=== PATIENT | male | born 1965 | race Hispanic/Latino ===

== ENCOUNTER 2022-01-31 12:50 | Outpatient (CLI) | payer MEDICARE | END 2022-01-31 12:51 | disposition home or self-care (01) | LOC: CSHWCC 12:50 | PROVIDERS: ATTEND Nurse Practitioner Family | DX: L89.893 Pressure ulcer of other site, stage 3 (principal) | CPT/HCPCS: 11042; 97139; G0463; 99212 ==

== ENCOUNTER 2022-03-28 13:03 | Outpatient (CLI) | payer MEDICARE | END 2022-03-28 13:04 | disposition home or self-care (01) | LOC: CSHWCC 13:03 | PROVIDERS: ATTEND Nurse Practitioner Family | DX: L89.893 Pressure ulcer of other site, stage 3 (principal) | CPT/HCPCS: 97139; G0463; 99213 ==

== ENCOUNTER 2022-04-18 12:51 | Outpatient (CLI) | payer MEDICARE | END 2022-04-18 12:52 | disposition home or self-care (01) | LOC: CSHWCC 12:51 | PROVIDERS: ATTEND Nurse Practitioner Family | DX: L89.893 Pressure ulcer of other site, stage 3 (principal) | CPT/HCPCS: 97607 ==

== ENCOUNTER 2022-04-25 14:07 | Outpatient (CLI) | payer MEDICARE | END 2022-04-25 14:08 | disposition home or self-care (01) | LOC: CSHWCC 14:07 | PROVIDERS: ATTEND Nurse Practitioner Family | DX: L89.893 Pressure ulcer of other site, stage 3 (principal) | CPT/HCPCS: 11042; 97607; 99212; G0463 ==

== ENCOUNTER 2022-05-02 13:54 | Outpatient (CLI) | payer MEDICARE | END 2022-05-02 13:55 | disposition home or self-care (01) | LOC: CSHWCC 13:54 | PROVIDERS: ATTEND Nurse Practitioner Family | DX: L89.893 Pressure ulcer of other site, stage 3 (principal); L89.892 Pressure ulcer of other site, stage 2 | CPT/HCPCS: 11042; 97139; 97607; G0463; 99212 ==

== ENCOUNTER 2022-05-09 12:59 | Outpatient (CLI) | payer MEDICARE | END 2022-05-09 13:00 | disposition home or self-care (01) | LOC: CSHWCC 12:59 | PROVIDERS: ATTEND Nurse Practitioner Family | DX: L89.893 Pressure ulcer of other site, stage 3 (principal); L89.892 Pressure ulcer of other site, stage 2 | CPT/HCPCS: 97139; 97607; G0463; 99213 ==

== ENCOUNTER 2022-06-06 11:29 | Outpatient (CLI) | payer MEDICARE | END 2022-06-06 11:30 | disposition home or self-care (01) | LOC: CSHWCC 11:29 | PROVIDERS: ATTEND Nurse Practitioner Family | DX: L89.893 Pressure ulcer of other site, stage 3 (principal); L89.892 Pressure ulcer of other site, stage 2 ==

== ENCOUNTER 2022-06-27 09:47 | Outpatient (CLI) | payer MEDICARE | END 2022-06-27 09:48 | disposition home or self-care (01) | LOC: CSHWCC 09:47 | PROVIDERS: ATTEND Nurse Practitioner Family | DX: L89.893 Pressure ulcer of other site, stage 3 (principal); L89.892 Pressure ulcer of other site, stage 2 ==

== ENCOUNTER 2022-09-05 10:27 | Outpatient (CLI) | payer MEDICARE | END 2022-09-05 10:28 | disposition home or self-care (01) | LOC: CSHWCC 10:27 | PROVIDERS: ATTEND Preventive Medicine Undersea and Hyperbaric Medicine | DX: L89.892 Pressure ulcer of other site, stage 2 (principal); L89.893 Pressure ulcer of other site, stage 3 | CPT/HCPCS: 97139; G0463; 99213 ==

== ENCOUNTER 2023-12-30 15:33 | Inpatient (IN) | payer MEDICARE, OTHER ==
[~2023-12-30 15:33] MED LIST: Iopamidol 300 61% 100 ML VIAL FS ONE
[2023-12-30] MEDS ORDERED: Cefepime 2 GM VIAL ONE (16:11)
[2023-12-30 16:14] LABS: #Basophils 0.1 10x3/uL (0.0-0.2); #Monocytes 1.4 10x3/uL (0.0-1.1); #Neutrophils 14.6 10x3/uL (1.5-8.4); %Basophils 0.3 % (0.0-2.0); %Eosinophils 0.2 % (0.0-6.0); %Lymphocytes 7.6 % (18.0-47.0); %Monocytes 7.8 % (0.0-10.0); %Neutrophils 79.9 % (40.0-75.0); Hemoglobin 9.3 g/dL (13.5-17.5); Mean Corpuscular HGB CONC 33.2 g/dL (32.0-36.0); Mean Corpuscular Hemoglobin 28.9 pg (27.0-33.0); Platelet Count 463 10x3/uL (150-450); RBC Distribution Width 13.9 % (11.5-14.5); Red Blood Cell (RBC) Count 3.22 10x6/uL (4.32-5.72); White Blood Cell (WBC) Count 18.3 10x3/uL (3.5-10.5)
[2023-12-30 16:36] LABS: Troponin I Less than 0.010 ng/mL (< 0.028)
[2023-12-30 16:46] LABS: INR-International Normal Ratio 1.1; PTT 24.5 sec (22.0-33.0); Prothrombin Time 11.9 sec (9.5-12.1)
[2023-12-30 16:51] LABS: ALT (SGPT) 17 U/L (8-55); AST (SGOT) 23 U/L (5-34); Albumin 3.1 g/dL (3.5-5.0); Alkaline Phosphatase 66 U/L (40-110); Anion Gap 17 mmol/L (10-20); BUN (Urea Nitrogen) 35 mg/dL (8.4-25.7); Bilirubin, Total 0.2 mg/dL (0.2-1.2); Calc. Creatinine Clearance 0 mL/min (70-130); Calcium 8.9 mg/dL (7.8-10.44); Carbon Dioxide 19 mmol/L (22-29); Chloride 102 mmol/L (98-107); Estimated GFR 34; Globulin 4.1 g/dL (2.4-3.5); Glucose 205 mg/dL (70-105); Lipase 94 U/L (8-78); Potassium 4.5 mmol/L (3.5-5.1); Protein, Total 7.2 g/dL (6.0-8.3); Sodium 133 mmol/L (136-145)
[2023-12-30] MEDS ORDERED: Vancomycin 1 GM VIAL ONE (16:52)
[2023-12-30 17:24] LABS: SARS-CoV-2 NAA Rapid Test Not Detected (NotDetected)
[2023-12-30] MEDS ORDERED: NOREPINEPHRINE 8 MG/250 ML-D5W 250 ML ONE (17:40)
[2023-12-30] MEDS ORDERED: Dextrose 50% Abboject 50 ML SYRINGE SLOW IVP PRN (17:52)
[2023-12-30] MEDS ORDERED: Dextrose 5% in Water 1,000 ML IV PRN (17:52)
[2023-12-30] MEDS ORDERED: Acetaminophen 325 MG TAB PO PRN (17:52)
[2023-12-30] MEDS ORDERED: Glucagon 1 MG/ML KIT IM PRN (17:52)
[2023-12-30 19:09] LABS: Lactic Acid 0.9 mmol/L (0.5-2.2)
[2023-12-30 20:41] VITALS: BMI 44.1
[2023-12-30] MEDS ORDERED: Vancomycin Dose by Levels Sliding Scale (Wt <71) FS SCH (21:00)
[2023-12-30] MEDS ORDERED: Vancomycin 1 GM in Premix 1 BAG IVPB SCH (21:00)
[2023-12-30] MEDS: Lantus 1000 UNITS/10 ML VIAL SC SCH (21:44)
[2023-12-30] MEDS: Lactated Ringer's 1,000 ML IV SCH (21:48)
[2023-12-30] MEDS: Vancomycin HCl 500 MG in Sodium Chloride 0.9% 100 ML IVPB SCH (21:48)
[2023-12-30] MEDS: Insulin Regular 300 UNITS/3 ML VIAL ONE (21:52)
[2023-12-31] MEDS: Ondansetron PF 4 MG/2 ML Vial IVP PRN (01:42)
[2023-12-31 04:08] LABS: Hematocrit 32.1 % (38.8-50.0); Hemoglobin 10.6 g/dL (13.5-17.5); Mean Corpuscular Hemoglobin 29.1 pg (27.0-33.0); Mean Corpuscular Volume 88.2 fl (81.2-95.1); Mean Platelet Volume 9.9 fl (7.4-10.4); Platelet Count 407 10x3/uL (150-450); RBC Distribution Width 14.2 % (11.5-14.5); Red Blood Cell (RBC) Count 3.64 10x6/uL (4.32-5.72)
[2023-12-31 04:14] LABS: Anion Gap 17 mmol/L (10-20); BUN (Urea Nitrogen) 26 mg/dL (8.4-25.7); Calc. Creatinine Clearance 47 mL/min (70-130); Calcium 8.3 mg/dL (7.8-10.44); Carbon Dioxide 15 mmol/L (22-29); Chloride 108 mmol/L (98-107); Estimated GFR 56; Glucose 214 mg/dL (70-105); Potassium 4.1 mmol/L (3.5-5.1); Sodium 136 mmol/L (136-145)
[2023-12-31 04:16] LABS: MDiff Complete? YES
[2023-12-31 04:53] LABS: Bilirubin Neg (Negative); Blood, Urine Negative (Negative); Glucose, Urine (Dipstick) >=1000 mg/dL (Negative); Ketone, Urine 50 mg/dL (Negative); Leukocyte Negative (Negative); Nitrite Negative (Negative); Protein, Urine (Dipstick) Negative (Neg-Trace); Specific Gravity, Urine 1.015 (1.005-1.030); Urobilinogen Normal mg/dL (Less than 2)
[2023-12-31 04:53] LABS: Vancomycin, Random 15.1 ug/mL (See Comment)
[2023-12-31 05:11] LABS: Clarity Slightly Cloudy (Clear)
[2023-12-31 05:12] LABS: Bacteria/HPF Rare-Few HPF (None Seen); RBC/HPF 0-3 HPF (0-3); Squamous Epithelial 0-3 HPF (0-3); Yeast-Budding Rare HPF (None Seen)
[2023-12-31 05:36] LABS: Band 2 % (5-11); Lymphocytes 8 % (21-51); Metamyelocyte 1 % (0-0); Monocytes 8 % (0-10); Neutrophil 81 % (42-75)
[2023-12-31 05:37] LABS: Platelet Adequacy Comment Appears Adequate; RBC Morph Comment Within Normal Limits
[2023-12-31] MEDS: HumaLOG 300 UNITS/3 ML VIAL SC PRN ×2 (05:54→21:30)
[2023-12-31] MEDS: Enoxaparin 30 MG (0.3 mL) SYRINGE SC SCH (08:37)
[2023-12-31] MEDS: Pantoprazole 40 MG VIAL IVP SCH (12:07)
[2023-12-31] MEDS: Cefepime 1 GM in Sodium Chloride 0.9% 100 ML IVPB SCH (15:05)
[2023-12-31 17:21] LABS: Campy jejuni + coli by PCR Negative (Negative); STEC Shiga Toxin 1+2 Negative (Negative); Salmonella spp. by PCR Negative (Negative); Shigella spp + EIEC by PCR Negative (Negative)
[2023-12-31 17:23] LABS: Vancomycin, Random 7.7 ug/mL (See Comment)
[2023-12-31] MEDS: Ondansetron ODT 4 MG TAB PO PRN (21:27)
[2023-12-31] MEDS: Vancomycin 1 GM in Sodium Chloride 0.9% 250 ML 250 ML IVPB SCH (21:27)
[2023-12-31] MEDS: HYDROcodone/Acetaminophen 5/325 mg Tablet PO PRN (21:28)
[2024-01-01] MEDS: Cefepime 2 GM in Sodium Chloride 0.9% 100 ML IVPB SCH (03:58)
[2024-01-01 07:48] LABS: Hematocrit 29.8 % (38.8-50.0); Hemoglobin 9.9 g/dL (13.5-17.5); MDiff Complete? YES; Mean Corpuscular HGB CONC 33.2 g/dL (32.0-36.0); Mean Corpuscular Volume 87.4 fl (81.2-95.1); Mean Platelet Volume 9.5 fl (7.4-10.4); Platelet Count 322 10x3/uL (150-450); RBC Distribution Width 14.2 % (11.5-14.5); Red Blood Cell (RBC) Count 3.41 10x6/uL (4.32-5.72); White Blood Cell (WBC) Count 6.8 10x3/uL (3.5-10.5)
[2024-01-01 07:59] LABS: Anion Gap 13 mmol/L (10-20); BUN (Urea Nitrogen) 10 mg/dL (8.4-25.7); Calc. Creatinine Clearance 89 mL/min (70-130); Calcium 8.2 mg/dL (7.8-10.44); Carbon Dioxide 21 mmol/L (22-29); Chloride 106 mmol/L (98-107); Estimated GFR 103; Glucose 112 mg/dL (70-105); Potassium 3.7 mmol/L (3.5-5.1); Sodium 136 mmol/L (136-145)
[2024-01-01] MEDS: Enoxaparin 40 MG (0.4 mL) SYRINGE SC SCH (08:11)
[2024-01-01 08:16] LABS: Eosinophils 2 % (0-10); Lymphocytes 15 % (21-51); Metamyelocyte 1 % (0-0); Monocytes 11 % (0-10); Myelocyte 1 % (0-0); Neutrophil 65 % (42-75); Reactive Lymphocytes 5 % (0-10)
[2024-01-01 08:17] LABS: Platelet Adequacy Comment Appears Adequate; RBC Morph Comment Within Normal Limits
[2024-01-01] MEDS ORDERED: Iopamidol 300 61% 100 ML VIAL FS ONE (09:08)
[2024-01-01 20:14] LABS: Vancomycin, Random 5.6 ug/mL (See Comment)
[2024-01-01] MEDS: Vancomycin HCl 750 MG in Sodium Chloride 0.9% 250 ML 250 ML IVPB SCH (22:23)
[2024-01-02 03:55] LABS: #Basophils 0.1 10x3/uL (0.0-0.2); #Eosinphils 0.1 10x3/uL (0.0-0.5); #Monocytes 0.7 10x3/uL (0.0-1.1); #Neutrophils 4.4 10x3/uL (1.5-8.4); %Basophils 0.7 % (0.0-2.0); %Eosinophils 1.7 % (0.0-6.0); %Lymphocytes 21.5 % (18.0-47.0); %Monocytes 10.2 % (0.0-10.0); %Neutrophils 61.8 % (40.0-75.0); Anion Gap 13 mmol/L (10-20); BUN (Urea Nitrogen) 10 mg/dL (8.4-25.7); Calc. Creatinine Clearance 94 mL/min (70-130); Calcium 7.9 mg/dL (7.8-10.44); Carbon Dioxide 23 mmol/L (22-29); Chloride 104 mmol/L (98-107); Estimated GFR 105; Glucose 172 mg/dL (70-105); Hematocrit 29.2 % (38.8-50.0); Hemoglobin 9.9 g/dL (13.5-17.5); Mean Corpuscular HGB CONC 33.9 g/dL (32.0-36.0); Mean Corpuscular Hemoglobin 28.9 pg (27.0-33.0); Mean Corpuscular Volume 85.1 fl (81.2-95.1); Mean Platelet Volume 9.5 fl (7.4-10.4); Platelet Count 319 10x3/uL (150-450); Potassium 3.7 mmol/L (3.5-5.1); RBC Distribution Width 13.7 % (11.5-14.5); Red Blood Cell (RBC) Count 3.43 10x6/uL (4.32-5.72); Sodium 136 mmol/L (136-145); White Blood Cell (WBC) Count 7.1 10x3/uL (3.5-10.5)
[2024-01-02] MEDS ORDERED: Ondansetron PF 4 MG/2 ML Vial ONE (09:54)
[2024-01-02] MEDS ORDERED: PROPOFOL 20 ML ONE (09:54)
[2024-01-02] MEDS ORDERED: Lidocaine 2% PF 5 ML VIAL ONE (09:54)
[2024-01-02] MEDS ORDERED: Fentanyl 250 MCG/5 ML VIAL ONE (09:54)
[2024-01-02] MEDS ORDERED: Acetaminophen 325 MG TAB PO PRN (16:37)
[2024-01-02] MEDS: Morphine 4 MG/ML VIAL SLOW IVP PRN (17:43)
[2024-01-03 08:56] LABS: Vancomycin, Trough 13.6 ug/mL
[2024-01-03] MEDS: Morphine 2 MG/ML VIAL SLOW IVP PRN (23:57)
[2024-01-04] MEDS: Sodium Chloride 0.9% 1,000 ML IV SCH (10:42)
[2024-01-04 11:04] LABS: Actual Bicarbonate (HCO3v) 22.9 mEq/L (22-28); Analyzer IN Cardio CS ER; Base Excess 0.3 mEq/L (-2 - +2); Calcium, Ionized (venous) 0.95 mmol/L (1.16-1.32); Chloride (VBG) 102 mmol/L (98-106); Critical Notified Whom: Cocjef; Hematocrit-VBG 34 % (42.0-52.0); Hemoglobin (Hb) 11.6 g/dL (13.1-17.2); Puncture Site Other Site; RapidComm Collect By LAB; Sodium 131 mmol/L (133-146); pH (venous) 7.494 (7.32-7.43)
[2024-01-04 11:26] LABS: PTT 29.6 sec (22.0-33.0); Prothrombin Time 10.9 sec (9.5-12.1)
[2024-01-04 11:27] LABS: #Basophils 0.1 10x3/uL (0.0-0.2); #Eosinphils 0.1 10x3/uL (0.0-0.5); #Monocytes 1.1 10x3/uL (0.0-1.1); #Neutrophils 5.5 10x3/uL (1.5-8.4); %Basophils 0.7 % (0.0-2.0); %Eosinophils 1.1 % (0.0-6.0); %Lymphocytes 17.9 % (18.0-47.0); %Monocytes 12.5 % (0.0-10.0); Hematocrit 28.4 % (38.8-50.0); Hemoglobin 9.2 g/dL (13.5-17.5); Mean Corpuscular HGB CONC 32.4 g/dL (32.0-36.0); Mean Corpuscular Hemoglobin 28.9 pg (27.0-33.0); Mean Corpuscular Volume 89.3 fl (81.2-95.1); Mean Platelet Volume 9.5 fl (7.4-10.4); Platelet Count 305 10x3/uL (150-450); RBC Distribution Width 13.8 % (11.5-14.5); Red Blood Cell (RBC) Count 3.18 10x6/uL (4.32-5.72); White Blood Cell (WBC) Count 8.4 10x3/uL (3.5-10.5)
[2024-01-04 11:32] LABS: ALT (SGPT) 16 U/L (8-55); AST (SGOT) 28 U/L (5-34); Albumin 2.5 g/dL (3.5-5.0); Alkaline Phosphatase 51 U/L (40-110); Anion Gap 13 mmol/L (10-20); BUN (Urea Nitrogen) 17 mg/dL (8.4-25.7); Bilirubin, Total Less than 0.2 mg/dL (0.2-1.2); Calc. Creatinine Clearance 75 mL/min (70-130); Calcium 7.9 mg/dL (7.8-10.44); Carbon Dioxide 22 mmol/L (22-29); Chloride 102 mmol/L (98-107); Estimated GFR 98; Globulin 3.5 g/dL (2.4-3.5); Glucose 129 mg/dL (70-105); Magnesium 1.5 mg/dL (1.6-2.6); Potassium 4.3 mmol/L (3.5-5.1); Sodium 133 mmol/L (136-145)
[2024-01-04 14:22] LABS: Lactic Acid 1.4 mmol/L (0.5-2.2)
[2024-01-04] MEDS: cefTRIAXone\\ROCEPHIN 1 GM in Sodium Chloride 0.9% 100 ML IVPB SCH (15:38)
[2024-01-04] MEDS ORDERED: Electrolyte Replacement Protocol 1 EACH FS SCH (15:45)
[2024-01-04] MEDS: Magnesium 2 GM/50 ML(in water) 2 GM in Premix 1 BAG IVPB SCH (16:51)
[2024-01-04] MEDS: Atorvastatin Calcium 40 MG TAB PO SCH (20:26)
[2024-01-05 05:43] LABS: #Eosinphils 0.2 10x3/uL (0.0-0.5); #Neutrophils 4.7 10x3/uL (1.5-8.4); %Basophils 0.4 % (0.0-2.0); %Eosinophils 2.2 % (0.0-6.0); %Lymphocytes 21.3 % (18.0-47.0); %Monocytes 12.5 % (0.0-10.0); %Neutrophils 60.8 % (40.0-75.0); Hematocrit 27.9 % (38.8-50.0); Hemoglobin 9.4 g/dL (13.5-17.5); Mean Corpuscular HGB CONC 33.7 g/dL (32.0-36.0); Mean Corpuscular Hemoglobin 29.3 pg (27.0-33.0); Mean Corpuscular Volume 86.9 fl (81.2-95.1); Mean Platelet Volume 9.6 fl (7.4-10.4); Platelet Count 299 10x3/uL (150-450); RBC Distribution Width 13.6 % (11.5-14.5); Red Blood Cell (RBC) Count 3.21 10x6/uL (4.32-5.72); White Blood Cell (WBC) Count 7.7 10x3/uL (3.5-10.5)
[2024-01-05 06:01] LABS: Anion Gap 11 mmol/L (10-20); BUN (Urea Nitrogen) 16 mg/dL (8.4-25.7); Calc. Creatinine Clearance 77 mL/min (70-130); Calcium 7.8 mg/dL (7.8-10.44); Carbon Dioxide 25 mmol/L (22-29); Chloride 102 mmol/L (98-107); Estimated GFR 99; Glucose 199 mg/dL (70-105); Magnesium 1.8 mg/dL (1.6-2.6); Potassium 4.2 mmol/L (3.5-5.1); Sodium 134 mmol/L (136-145)
[2024-01-05] MEDS: Magnesium 2 GM/50 ML(in water) 2 GM in Premix 1 BAG IVPB SCH (09:26)
[2024-01-05] MEDS: Magnesium 2 GM/50 ML BAG (IN WATER) ONE (10:01)
[2024-01-06 05:10] LABS: #Basophils 0.1 10x3/uL (0.0-0.2); #Eosinphils 0.1 10x3/uL (0.0-0.5); #Monocytes 0.7 10x3/uL (0.0-1.1); #Neutrophils 4.5 10x3/uL (1.5-8.4); %Basophils 0.7 % (0.0-2.0); %Eosinophils 1.3 % (0.0-6.0); %Lymphocytes 19.9 % (18.0-47.0); %Monocytes 10.1 % (0.0-10.0); %Neutrophils 66.7 % (40.0-75.0); Hematocrit 30.2 % (38.8-50.0); Hemoglobin 9.9 g/dL (13.5-17.5); Mean Corpuscular HGB CONC 32.8 g/dL (32.0-36.0); Mean Corpuscular Hemoglobin 28.7 pg (27.0-33.0); Mean Corpuscular Volume 87.5 fl (81.2-95.1); Mean Platelet Volume 9.3 fl (7.4-10.4); Platelet Count 343 10x3/uL (150-450); RBC Distribution Width 13.5 % (11.5-14.5); Red Blood Cell (RBC) Count 3.45 10x6/uL (4.32-5.72); White Blood Cell (WBC) Count 6.7 10x3/uL (3.5-10.5)
[2024-01-06 05:12] LABS: Anion Gap 11 mmol/L (10-20); BUN (Urea Nitrogen) 16 mg/dL (8.4-25.7); Calc. Creatinine Clearance 78 mL/min (70-130); Calcium 8.1 mg/dL (7.8-10.44); Carbon Dioxide 26 mmol/L (22-29); Chloride 101 mmol/L (98-107); Estimated GFR 99; Glucose 188 mg/dL (70-105); Magnesium 2.1 mg/dL (1.6-2.6); Potassium 4.5 mmol/L (3.5-5.1); Sodium 133 mmol/L (136-145)
[2024-01-07 04:25] LABS: #Basophils 0.1 10x3/uL (0.0-0.2); #Eosinphils 0.1 10x3/uL (0.0-0.5); #Monocytes 0.9 10x3/uL (0.0-1.1); #Neutrophils 5.9 10x3/uL (1.5-8.4); %Basophils 0.6 % (0.0-2.0); %Eosinophils 1.3 % (0.0-6.0); %Lymphocytes 19.2 % (18.0-47.0); %Monocytes 10.7 % (0.0-10.0); %Neutrophils 67.4 % (40.0-75.0); Hematocrit 29.3 % (38.8-50.0); Hemoglobin 9.6 g/dL (13.5-17.5); Mean Corpuscular HGB CONC 32.8 g/dL (32.0-36.0); Mean Corpuscular Hemoglobin 28.3 pg (27.0-33.0); Mean Corpuscular Volume 86.4 fl (81.2-95.1); Platelet Count 401 10x3/uL (150-450); RBC Distribution Width 13.4 % (11.5-14.5); Red Blood Cell (RBC) Count 3.39 10x6/uL (4.32-5.72); White Blood Cell (WBC) Count 8.8 10x3/uL (3.5-10.5)
[2024-01-07 04:39] LABS: Anion Gap 12 mmol/L (10-20); BUN (Urea Nitrogen) 17 mg/dL (8.4-25.7); Calc. Creatinine Clearance 64 mL/min (70-130); Calcium 8.2 mg/dL (7.8-10.44); Carbon Dioxide 25 mmol/L (22-29); Chloride 101 mmol/L (98-107); Estimated GFR 82; Glucose 216 mg/dL (70-105); Magnesium 1.7 mg/dL (1.6-2.6); Potassium 4.4 mmol/L (3.5-5.1); Sodium 134 mmol/L (136-145)
[2024-01-07] MEDS: Magnesium 2 GM/50 ML(in water) 2 GM in Premix 1 BAG IVPB SCH (09:13)
[2024-01-07] MEDS: Alogliptin 6.25 MG TAB PO SCH (12:45)
[2024-01-07] MEDS: metFORMIN 500 MG TAB PO SCH ×2 (14:39→16:59)
[2024-01-07] MEDS: Polyethylene Glycol 3350 17 GM Packet PO SCH (16:59)
[2024-01-08] MEDS: Polyethylene Glycol 3350 17 GM Packet PO SCH (09:04)
[2024-01-08] MEDS: Alogliptin 6.25 MG TAB PO SCH (09:06)
[2024-01-08] MEDS: oxyCODONE 5 MG TAB PO PRN (14:09)
[2024-01-08 16:13] VITALS: BP 116/65; TEMP 97.9
== END 2024-01-08 16:15 | disposition swing bed (61) | DRG 853 ==
LOC: CSHERS 15:33 → OBSVTOIN 17:02 → CSHIMCU 17:02 → MERGE 17:02 → CSHTELE 01-02 14:26
PROVIDERS: ADMIT Internal Medicine; ATTEND Family Medicine
PROC: 3E03329 Introduction of Other Anti-infective into Peripheral Vein, Percutaneous Approach (ICD-10-PCS; 2023-12-30)
PROC: 3E033XZ Introduction of Vasopressor into Peripheral Vein, Percutaneous Approach (ICD-10-PCS; 2023-12-30)
PROC: 0JBL0ZZ Excision of Right Upper Leg Subcutaneous Tissue and Fascia, Open Approach (ICD-10-PCS; principal; 2024-01-02)
DX: A40.1 Sepsis due to streptococcus, group B (principal); R65.21 Severe sepsis with septic shock; L02.415 Cutaneous abscess of right lower limb; L03.115 Cellulitis of right lower limb; N17.9 Acute kidney failure, unspecified; B37.7 Candidal sepsis; E11.628 Type 2 diabetes mellitus with other skin complications; I10 Essential (primary) hypertension; E78.5 Hyperlipidemia, unspecified; K21.9 Gastro-esophageal reflux disease without esophagitis; E55.9 Vitamin D deficiency, unspecified; I95.9 Hypotension, unspecified; Z89.512 Acquired absence of left leg below knee; Z89.511 Acquired absence of right leg below knee; Z79.899 Other long term (current) drug therapy; Z83.3 Family history of diabetes mellitus; Z11.52 Encounter for screening for COVID-19
CPT/HCPCS: 36415; 36416; 36556; 71045; 74177; 80048; 80053; 80202; 81001; 82805; 83605; 83690; 83735; 84443; 84484; 85025; 85610; 85730; 86850; 86900; 86901; 87040; 87070; 87076; 87077; 87086; 87205; 87324; 87449; 87505; 93005; 93010; 93306; 94760; 96374; 96375; 97139; C1713; C9113; J0692; J0696; J1650; J1815; J2001; J2270; J2272; J2405; J2704; J3010; J3370; J3475; J3490; J7050; J7120; Q0162; Q9967

== ENCOUNTER 2024-01-23 08:09 | Outpatient (CLI) | payer OTHER | END 2024-01-23 08:10 | disposition home or self-care (01) | LOC: CSHWCC 08:09 | PROVIDERS: ATTEND Nurse Practitioner Family | DX: T81.32XD Disruption of internal operation (surgical) wound, not elsewhere classified, subsequent encounter (principal); E11.622 Type 2 diabetes mellitus with other skin ulcer; L97.122 Non-pressure chronic ulcer of left thigh with fat layer exposed; L97.115 Non-pressure chronic ulcer of right thigh with muscle involvement without evidence of necrosis; E11.51 Type 2 diabetes mellitus with diabetic peripheral angiopathy without gangrene; E11.40 Type 2 diabetes mellitus with diabetic neuropathy, unspecified | CPT/HCPCS: 11042; 11043; 11046; 97605; G0463; 99215 ==

== ENCOUNTER 2024-01-27 14:30 | Outpatient (CLI) | payer OTHER | END 2024-01-27 14:31 | disposition home or self-care (01) | LOC: CSHWCC 14:30 | PROVIDERS: ATTEND Nurse Practitioner Family | DX: T81.32XD Disruption of internal operation (surgical) wound, not elsewhere classified, subsequent encounter (principal); E11.622 Type 2 diabetes mellitus with other skin ulcer; L97.122 Non-pressure chronic ulcer of left thigh with fat layer exposed; L97.115 Non-pressure chronic ulcer of right thigh with muscle involvement without evidence of necrosis; E11.51 Type 2 diabetes mellitus with diabetic peripheral angiopathy without gangrene; E11.40 Type 2 diabetes mellitus with diabetic neuropathy, unspecified | CPT/HCPCS: 11042 ==

== ENCOUNTER 2024-02-10 | Outpatient (CLI) | payer OTHER | END 2024-02-10 11:04 | disposition home or self-care (01) | DX: T81.32XA Disruption of internal operation (surgical) wound, not elsewhere classified, initial encounter (principal); E11.622 Type 2 diabetes mellitus with other skin ulcer; E11.40 Type 2 diabetes mellitus with diabetic neuropathy, unspecified; L97.122 Non-pressure chronic ulcer of left thigh with fat layer exposed; L97.115 Non-pressure chronic ulcer of right thigh with muscle involvement without evidence of necrosis; I73.9 Peripheral vascular disease, unspecified ==

== ENCOUNTER 2024-03-02 14:30 | Outpatient (CLI) | payer OTHER | END 2024-03-02 14:31 | LOC: CSHWCC 14:30 | PROVIDERS: ATTEND Nurse Practitioner Family | DX: T81.32XD Disruption of internal operation (surgical) wound, not elsewhere classified, subsequent encounter (principal); E11.622 Type 2 diabetes mellitus with other skin ulcer; L97.122 Non-pressure chronic ulcer of left thigh with fat layer exposed; L97.115 Non-pressure chronic ulcer of right thigh with muscle involvement without evidence of necrosis; E11.51 Type 2 diabetes mellitus with diabetic peripheral angiopathy without gangrene; E11.40 Type 2 diabetes mellitus with diabetic neuropathy, unspecified | CPT/HCPCS: 11042 ==

== ENCOUNTER 2024-04-06 10:00 | Outpatient (CLI) | payer OTHER | END 2024-04-06 10:01 | disposition home or self-care (01) | LOC: CSHWCC 10:00 | PROVIDERS: ATTEND Family Medicine | DX: T81.32XD Disruption of internal operation (surgical) wound, not elsewhere classified, subsequent encounter (principal); E11.622 Type 2 diabetes mellitus with other skin ulcer; L97.122 Non-pressure chronic ulcer of left thigh with fat layer exposed; L97.115 Non-pressure chronic ulcer of right thigh with muscle involvement without evidence of necrosis; I73.9 Peripheral vascular disease, unspecified; E11.40 Type 2 diabetes mellitus with diabetic neuropathy, unspecified | CPT/HCPCS: 97597 ==

== ENCOUNTER 2024-04-13 10:28 | Outpatient (CLI) | payer OTHER | END 2024-04-13 10:29 | disposition home or self-care (01) | LOC: CSHWCC 10:28 | PROVIDERS: ATTEND Nurse Practitioner Family | DX: T81.32XD Disruption of internal operation (surgical) wound, not elsewhere classified, subsequent encounter (principal); E11.622 Type 2 diabetes mellitus with other skin ulcer; E11.40 Type 2 diabetes mellitus with diabetic neuropathy, unspecified; L97.122 Non-pressure chronic ulcer of left thigh with fat layer exposed; L97.115 Non-pressure chronic ulcer of right thigh with muscle involvement without evidence of necrosis; I73.9 Peripheral vascular disease, unspecified | CPT/HCPCS: 11042 ==

== ENCOUNTER 2024-04-20 10:54 | Outpatient (CLI) | payer OTHER | END 2024-04-20 10:55 | disposition home or self-care (01) | LOC: CSHWCC 10:54 | PROVIDERS: ATTEND Nurse Practitioner Family | DX: T81.32XD Disruption of internal operation (surgical) wound, not elsewhere classified, subsequent encounter (principal); E11.622 Type 2 diabetes mellitus with other skin ulcer; L97.122 Non-pressure chronic ulcer of left thigh with fat layer exposed; L97.115 Non-pressure chronic ulcer of right thigh with muscle involvement without evidence of necrosis; E11.40 Type 2 diabetes mellitus with diabetic neuropathy, unspecified; I73.9 Peripheral vascular disease, unspecified | CPT/HCPCS: 97607 ==

== ENCOUNTER 2024-05-25 10:03 | Outpatient (CLI) | payer MEDICARE, OTHER | END 2024-05-25 10:04 | disposition home or self-care (01) | LOC: CSHWCC 10:03 | PROVIDERS: ATTEND Preventive Medicine Undersea and Hyperbaric Medicine | DX: T81.32XD Disruption of internal operation (surgical) wound, not elsewhere classified, subsequent encounter (principal); E11.622 Type 2 diabetes mellitus with other skin ulcer; E11.40 Type 2 diabetes mellitus with diabetic neuropathy, unspecified; L97.122 Non-pressure chronic ulcer of left thigh with fat layer exposed; L97.115 Non-pressure chronic ulcer of right thigh with muscle involvement without evidence of necrosis; I73.9 Peripheral vascular disease, unspecified | CPT/HCPCS: 99215; G0463 ==

== ENCOUNTER 2024-06-01 15:55 | Outpatient (CLI) | payer OTHER | END 2024-06-01 15:56 | disposition home or self-care (01) | LOC: CSHWCC 15:55 | PROVIDERS: ATTEND Nurse Practitioner Family | DX: T81.32XD Disruption of internal operation (surgical) wound, not elsewhere classified, subsequent encounter (principal); E11.622 Type 2 diabetes mellitus with other skin ulcer; L97.122 Non-pressure chronic ulcer of left thigh with fat layer exposed; L97.115 Non-pressure chronic ulcer of right thigh with muscle involvement without evidence of necrosis; E11.40 Type 2 diabetes mellitus with diabetic neuropathy, unspecified; I73.9 Peripheral vascular disease, unspecified | CPT/HCPCS: 11042; 97597 ==

== ENCOUNTER 2024-06-15 12:49 | Outpatient (CLI) | payer OTHER | END 2024-06-15 12:50 | disposition home or self-care (01) | LOC: CSHWCC 12:49 | PROVIDERS: ATTEND Nurse Practitioner Family | DX: T81.32XD Disruption of internal operation (surgical) wound, not elsewhere classified, subsequent encounter (principal); E11.622 Type 2 diabetes mellitus with other skin ulcer; E11.40 Type 2 diabetes mellitus with diabetic neuropathy, unspecified; L97.122 Non-pressure chronic ulcer of left thigh with fat layer exposed; L97.115 Non-pressure chronic ulcer of right thigh with muscle involvement without evidence of necrosis; I73.9 Peripheral vascular disease, unspecified | CPT/HCPCS: 11042 ==

== ENCOUNTER 2024-07-27 08:39 | Outpatient (CLI) | payer OTHER | END 2024-07-27 08:40 | disposition home or self-care (01) | LOC: CSHWCC 08:39 | PROVIDERS: ATTEND Nurse Practitioner Family | DX: T81.32XD Disruption of internal operation (surgical) wound, not elsewhere classified, subsequent encounter (principal); E11.622 Type 2 diabetes mellitus with other skin ulcer; L97.122 Non-pressure chronic ulcer of left thigh with fat layer exposed; L97.115 Non-pressure chronic ulcer of right thigh with muscle involvement without evidence of necrosis; E11.51 Type 2 diabetes mellitus with diabetic peripheral angiopathy without gangrene; E11.40 Type 2 diabetes mellitus with diabetic neuropathy, unspecified | CPT/HCPCS: 11042 ==

== ENCOUNTER 2024-09-07 13:05 | Outpatient (CLI) | payer OTHER | END 2024-09-07 13:06 | disposition home or self-care (01) | LOC: CSHWCC 13:05 | PROVIDERS: ATTEND Nurse Practitioner Family | DX: E11.622 Type 2 diabetes mellitus with other skin ulcer (principal); L97.122 Non-pressure chronic ulcer of left thigh with fat layer exposed; L97.115 Non-pressure chronic ulcer of right thigh with muscle involvement without evidence of necrosis; E11.51 Type 2 diabetes mellitus with diabetic peripheral angiopathy without gangrene; I73.9 Peripheral vascular disease, unspecified; T81.329D Deep disruption or dehiscence of operation wound, unspecified, subsequent encounter; E11.40 Type 2 diabetes mellitus with diabetic neuropathy, unspecified | CPT/HCPCS: 11042 ==

== ENCOUNTER 2024-10-05 13:45 | Outpatient (CLI) | payer OTHER | END 2024-10-05 13:46 | disposition home or self-care (01) | LOC: CSHWCC 13:45 | PROVIDERS: ATTEND Nurse Practitioner Family | DX: T81.329D Deep disruption or dehiscence of operation wound, unspecified, subsequent encounter (principal); E11.622 Type 2 diabetes mellitus with other skin ulcer; L97.122 Non-pressure chronic ulcer of left thigh with fat layer exposed; L97.115 Non-pressure chronic ulcer of right thigh with muscle involvement without evidence of necrosis; E11.51 Type 2 diabetes mellitus with diabetic peripheral angiopathy without gangrene; E11.40 Type 2 diabetes mellitus with diabetic neuropathy, unspecified | CPT/HCPCS: 11042 ==

== ENCOUNTER 2024-11-11 12:11 | Outpatient (CLI) | payer MEDICARE, OTHER | END 2024-11-11 12:12 | disposition home or self-care (01) | LOC: CSHWCC 12:11 | PROVIDERS: ATTEND Nurse Practitioner Family | DX: E11.622 Type 2 diabetes mellitus with other skin ulcer (principal); L97.115 Non-pressure chronic ulcer of right thigh with muscle involvement without evidence of necrosis; E11.40 Type 2 diabetes mellitus with diabetic neuropathy, unspecified; I73.9 Peripheral vascular disease, unspecified | CPT/HCPCS: 11042 ==